=== PATIENT | male | born 1965 | race Caucasian/White ===

== ENCOUNTER 2019-01-09 16:10 | Observation (INO) ==
[2019-01-09 11:37] LABS: Basophils # 0.1 K/mcL (0.0-0.2); Basophils % 0.6 %; Eosinophils # 0.7 K/mcL (0.0-0.6); Eosinophils % 7.6 %; Hematocrit 45.7 % (37.5-50.1); Hemoglobin 15.1 g/dL (12.9-16.9); Immature Granulocytes % 0.4 % (0-4); Lymphocytes # 1.8 K/mcL (0.6-4.6); Lymphocytes % 19.3 %; Mean Corpuscular Volume 87.9 fL (83.0-100.0); Mean Platelet Volume 9.3 fL (9.4-12.4); Monocytes # 0.5 K/mcL (0.0-1.3); Monocytes % 5.9 %; Platelet Count 169 K/mcL (140-400); Red Cell Distribution Width 13.3 % (11.5-14.5); Segmented Neutrophils % 66.2 %; White Blood Count 9.1 K/mcL (4.3-11.1)
[2019-01-09 11:50] LABS: BUN/Creatinine Ratio 20 (6-26); Blood Urea Nitrogen 19 mg/dL (6-20); Calcium 9.4 mg/dL (8.6-10.3); Carbon Dioxide 27 mEq/L (23-29); Chloride 106 mEq/L (98-107); Glucose 137 mg/dL (70-105); Osmolality,Calculated 292 (280-300); Potassium 3.7 mEq/L (3.5-5.1); Sodium 139 mEq/L (136-145); eGFR For African Americans > 60 (> 60); eGFR For Non-African Americans > 60 (> 60)
--- NOTE | 2019-01-09 12:15 | History & Physical Report ---
Date of Encounter: 01/09/19 Time of Encounter: 12:08 24 Hour HP Update - Instructions Instructions: If the History and Physical is less than 30 days old and was completed prior to A.M. admission and or procedure and has NOT been updated on calendar day of procedure please complete this update prior to performing procedure. - Update Patient reports changes in Medical Condition: No Changes in examination, assessment, or condition: No Changes in Medication: No - Attending Attestation Mr. Noyola is a 53-year-old male with PMH of PAF that presents today for Sotalol increase to 160mg BID for recurrent PAF. Please refer to eCW encounter from 12/15/[address] Lg Pfeiffer as H&P. Will need monitored for 5 total increased doses. Anticoagulated on Xarelto, no missed doses in the past 30 days. Baseline ECG 01/09 A-Fib rate 63, QT/QTc 394/401ms. Check TTE. Prior CV testing: [facility] 09/03/16: Nonobstructive coronary artery disease. The left ventricle is grey l and has normal contractility EF 60%.
[2019-01-09] MEDS: Cholecalciferol (D-3) 1,000 UNIT (25MCG) TABLET PO SCH (13:27)
[2019-01-09] MEDS: Aspirin Enteric Coated 81 MG Tablet PO SCH (13:27)
[2019-01-09] MEDS: Multivit/Ca/Min/Fe/FA 1 TAB TABLET PO SCH (13:27)
[2019-01-09] MEDS: Diltiazem CD (24hr) 240 MG CAPSULE PO SCH (13:27)
[2019-01-09] MEDS: Vitamin E 200 UNIT (90MG) CAPSULE PO SCH (13:31)
--- NOTE | 2019-01-09 16:22 | Electrocardiograph Report ---
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
[2019-01-09] MEDS: Gabapentin 300 MG CAPSULE PO SCH ×2 (17:11→21:18)
[2019-01-09] MEDS: *HR* Rivaroxaban 10 MG TABLET PO SCH (17:11)
[2019-01-09] MEDS ORDERED: Perflutren Lipid Microsphere 1.3 ML in 0.9 % Sodium Chloride 8.7 ML IVP ONE (19:20)
[2019-01-09] MEDS ORDERED: NON-FORMULARY MEDICATION 1 EACH EACH (Ezetimibe [Zetia] 10 MG) PO SCH (21:00)
[2019-01-09] MEDS: *HR* Metformin 500 MG TABLET PO SCH (21:18)
[2019-01-10] MEDS: Aspirin Enteric Coated 81 MG Tablet PO SCH (08:37)
[2019-01-10] MEDS: Cholecalciferol (D-3) 1,000 UNIT (25MCG) TABLET PO SCH (08:37)
[2019-01-10] MEDS: Diltiazem CD (24hr) 240 MG CAPSULE PO SCH (08:37)
[2019-01-10] MEDS: Multivit/Ca/Min/Fe/FA 1 TAB TABLET PO SCH (08:37)
[2019-01-10] MEDS: Gabapentin 300 MG CAPSULE PO SCH ×3 (08:37→19:55)
[2019-01-10] MEDS: Vitamin E 200 UNIT (90MG) CAPSULE PO SCH (08:37)
[2019-01-10] MEDS: *HR* Metformin 500 MG TABLET PO SCH ×2 (08:38→19:55)
--- NOTE | 2019-01-10 11:22 | Electrophysiology ProgressNote ---
Date of Encounter: 01/10/19 Time of Encounter: :19 Assessment and Plan (1) PAF (paroxysmal atrial fibrillation) Current Visit: Yes Status: Acute Hx PAF that presented 01/09 for Sotalol increase to 160mg BID for recurrent PAF. Please refer to eCW encounter from 12/15/[address] Lg Pfeiffer as H&P. Will need monitored for 5 total increased doses. Anticoagulated on Xarelto, no missed doses in the past 30 days. Daily ECGs to monitor QTc. Baseline ECG 01/09 A-Fib rate 63, QT/QTc 394/401ms. ECG 01/10 A-Fib rate 54, QT/QTc 443/428ms. NPO after midnight tonight for DCCV tomorrow if remains in A-Fib. TTE Technically sub-optimal due to body habitus. LVEF 55%. Mildly dilated LV. RV was not well visualized. Grossly, it is dilated with mildly reduced function. Severely dilated LA. No evidence of phtn identified. RVSP not well obtained due to poor TR jet. No obvious significant valvular dysfunction. Discussion w patient/family: The assessment and plan as outlined above was discussed with the patient and/or family members who expressed understanding and agreement. All questions were answered. Thank you for involving us in the care of your patient. Please call with any questions. I will discuss all the above with Dr. Lg Pfeiffer and make changes as necessary. Subjective Principal diagnosis: PAF Interval history: No acute complaints this AM. Objective Vital Signs, Last 4 Hours Temp Pulse Resp BP Pulse Ox 01/10/19 08:10 97.8 F 69 18 129/85 98 Vital Signs Temp Pulse Resp BP Pulse Ox 01/10/19 08:10 97.8 F 69 18 129/85 98 01/10/19 04:27 15 97 01/10/19 03:16 97.7 F 60 18 123/76 97 01/10/19 00:35 17 97 01/09/19 23:08 97.9 F 65 18 115/66 96 01/09/19 19:08 98.0 F 60 18 125/72 95 01/09/19 16:26 98.5 F 60 18 101/54 98 01/09/19 11:49 98.7 F 69 18 135/91 96 Intake and Output 01/09/19 01/10/19 01/10/19 23:59 07:59 15:59 Other: # Voids 4 Weight 182.9 kg Blood Glucose* 125 99 Patient Weight 01/10/19 23:59 Weight 182.9 kg General: Conversant, No Apparent Distress HEENT: Atraumatic, Normocephaly, Mucus Membranes Moist Neck: No JVD, Normal carotid pulses Cardiac: Other (irregularly irregular) Lungs: Normal Breath Sounds, No Wheeze, Rales, Rhonchi Neuro: Alert and responsive, No focal deficits noted Abdomen: Soft, Non-Tender Skin: No rashes noted on visualized skin Musculoskeletal: No Chest Wall Tenderness Extremities: No Clubbing, No Cyanosis, No Edema, Normal Pulses Results 01/09/19 10:59 01/09/19 10:59 Lab Results 01/09/19 01/09/19 10:59 10:59 WBC 9.1 Hgb 15.1 Hct 45.7 Plt Count 169 Sodium 139 Potassium 3.7 Chloride 106 Carbon Dioxide 27 BUN 19 Creatinine 0.96 Glucose 137 H Calcium 9.4 Short CBC 01/09/19 Range/Units 10:59 WBC 9.1 (4.3-11.1) K/mcL Hgb 15.1 (12.9-16.9) g/dL Hct 45.7 (37.5-50.1) % Plt Count 169 (140-400) K/mcL Neutrophils # 6.0 (1.6-8.9) K/mcL BMP 01/09/19 Range/Units 10:59 Sodium 139 (136-145) mEq/L Potassium 3.7 (3.5-5.1) mEq/L Chloride 106 (98-107) mEq/L Carbon Dioxide 27 (23-29) mEq/L BUN 19 (6-20) mg/dL Creatinine 0.96 (0.70-1.30) mg/dL Glucose 137 H (70-105) mg/dL Calcium 9.4 (8.6-10.3) mg/dL Impressions Echocardiogram 01/09/19 23:28 Impressions: Technically sub-optimal due to body habitus. LVEF 55%. Mildly dilated left ventricle. Indeterminate diastolic function. Right ventricle was not well visualized. Grossly, it is dilated with mildly reduced function. Severely dilated left atrium. No evidence of pulmonary hypertension identified. RVSP not well obtained due to poor TR jet. No obvious significant valvular dysfunction. Left Ventricular Wall Motion: Rest Echo Findings All wall segments showed normal motion. Findings: Study Quality * Technically sub-optimal due to body habitus. ECG Findings * Atrial fibrillation. Left Ventricle * LVEF 55%. * Mildly dilated left ventricle. * Indeterminate diastolic function. Right Ventricle * Right ventricle was not well visualized. Grossly, it is dilated with mildly reduced function. Left Atrium * Severely dilated left atrium. Right Atrium * Mildly dilated right atrium. Interatrial Septum * Interatrial septum not well evaluated. Aortic Valve * Aortic valve not well visualized. * No aortic regurgitation. * No aortic stenosis. Mitral Valve * Normal mitral valve structure and function. * No mitral regurgitation. * No mitral stenosis. Tricuspid Valve * Normal tricuspid valve structure and function. * Trace tricuspid regurgitation. * No evidence of pulmonary hypertension identified. RVSP not well obtained due to poor TR jet. Pulmonic Valve * Pulmonic valve not well visualized. Aorta * Normally sized aortic root. Pericardium * The pericardium appears normal. IVC * The IVC is not well evaluated. Pulmonary Artery * Pulmonary artery not well visualized. Active Medications Aspirin (Aspirin Ec) 81 mg PO DAILY [facility] Stop: 07/11/19 12:01 Last Admin: 01/10/19 08:37 Dose: 81 mg Documented by: Atorvastatin Calcium (Lipitor) 20 mg PO DAILY TEN Stop: 07/12/19 09:01 Last Admin: 01/10/19 08:37 Dose: 20 mg Documented by: Calcium Carbonate (Tums) 500 mg PO DAILY TEN Stop: 07/11/19 12:01 Last Admin: 01/10/19 08:38 Dose: 500 mg Documented by: Diltiazem HCl (Cardizem Cd) 240 mg PO DAILY TEN Stop: 07/11/19 11:56 Last Admin: 01/10/19 08:37 Dose: 240 mg Documented by: Escitalopram Oxalate (Lexapro) 20 mg PO DAILY TEN Stop: 07/11/19 12:01 Last Admin: 01/10/19 08:37 Dose: 20 mg Documented by: Gabapentin (Neurontin) 300 mg PO TID TEN Stop: 07/11/19 15:01 Last Admin: 01/10/19 08:37 Dose: 300 mg Documented by: Metformin HCl (Glucophage) 500 mg PO BID TEN Stop: 07/11/19 21:01 Last Admin: 01/10/19 08:38 Dose: 500 mg Documented by: Multivitamins/Calcium (Thera M Plus) 1 tab PO DAILY TEN Stop: 07/11/19 11:56 Last Admin: 01/10/19 08:37 Dose: 1 tab Documented by: Rivaroxaban (Xarelto) 20 mg PO PMHY TEN Stop: 07/11/19 16:31 Last Admin: 01/09/19 17:11 Dose: 20 mg Documented by: Sotalol HCl (Betapace) 160 mg PO Q12H TEN Stop: 07/11/19 12:01 Last Admin: 01/10/19 00:11 Dose: 160 mg Documented by: Vitamin D (Vitamin D) 1,000 unit PO DAILY TEN Stop: 07/11/19 12:01 Last Admin: 01/10/19 08:37 Dose: 1,000 unit Documented by: Vitamin E (Vitamin E) 400 unit PO DAILY [facility] Stop: 07/11/19 11:55 Last Admin: 01/10/19 08:37 Dose: 400 unit Documented by: - Imaging and Cardiology Echo: report reviewed - EKG Interpretation EKG results cardiology: other (12 hr tele AVG HR 64, A-Fib) Consult Discharge Plan - Plan Referrals: Lg Pfeiffer MD [Partnered Physician] - Justice Bardales MD [Partnered Physician] - 01/18/19 1:30 pm
[2019-01-10] MEDS: *HR* Rivaroxaban 10 MG TABLET PO SCH (15:05)
--- NOTE | 2019-01-10 21:28 | Electrocardiograph Report ---
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
[2019-01-11] MEDS: Cholecalciferol (D-3) 1,000 UNIT (25MCG) TABLET PO SCH (09:02)
[2019-01-11] MEDS: Vitamin E 200 UNIT (90MG) CAPSULE PO SCH (09:03)
[2019-01-11] MEDS: *HR* Metformin 500 MG TABLET PO SCH (09:03)
[2019-01-11] MEDS: Aspirin Enteric Coated 81 MG Tablet PO SCH (09:03)
[2019-01-11] MEDS: Gabapentin 300 MG CAPSULE PO SCH (09:03)
[2019-01-11] MEDS: Multivit/Ca/Min/Fe/FA 1 TAB TABLET PO SCH (09:03)
[2019-01-11] MEDS: Diltiazem CD (24hr) 240 MG CAPSULE PO SCH (09:03)
[2019-01-11] MEDS ORDERED: *HR* Midazolam HCl 5 MG/5 ML VIAL IVP ONE ×2 (10:02→10:35)
[2019-01-11] MEDS ORDERED: 0.9 % Sodium Chloride 500 ML ONE (10:02)
[2019-01-11] MEDS ORDERED: *HR* FentaNYL (PF) 100 MCG/2 ML VIAL ONE ×2 (10:02→10:27)
--- NOTE | 2019-01-11 10:53 | Pre-Sedation Evaluation ---
Pre-sedation evaluation - Pre-sedation checklist Date of procedure: 01/11/19 Procedure: cardioversion Recent Vitals: Last Vital Signs Temp 98.8 F 01/11/19 06:52 Pulse 60 01/11/19 06:52 Resp 16 01/11/19 06:52 BP 132/86 01/11/19 06:52 Pulse Ox 95 01/11/19 06:52 H&P (including ROS) documented in medical record: Yes Previous reaction to sedatives/anesthetics: Yes; explain in comment Dietary Status: NPO after Midnight Airway Assessment: Patient can open mouth completely, TMJ function normal, Micrognathia (under-bite, receding chin) absent Dentition: full dentition Possible difficult airway: Yes If Yes;: Morbid obesity ASA Classification *see protocol: CLASS III-Severe systemic disease Plan of Care: Pt appropriate candidate for procedure/moderate/conscious sedation, Risks/benefits of procedure/sedation discussed w/ patient/family
[2019-01-11 11:29] VITALS: BP 124/79
--- NOTE | 2019-01-11 13:53 | Discharge Summary ---
Date of Encounter: 01/11/19 Time of Encounter: 13:42 - Discharge Diagnosis (1) PAF (paroxysmal atrial fibrillation) Priority: Primary Status: Acute - Hospital Course Hospital course: Mr. Noyola is a 53 year old male with PMH of PAF that presented 01/09 for Sotalol increase to 160mg BID for recurrent PAF. Please refer to eCW encounter from 12/15/[address] Lg Pfeiffer as H&P. Monitored for 5 total increased doses. QTc has remained stable. Anticoagulated on Xarelto, no missed doses in the past 30 days. Underwent successful DCCV today to [facility]. Continue Cardizem. Will d/c home in stable condition and coordinate outpt f/up in 2-3 weeks. TTE completed--Technically sub-optimal due to body habitus. LVEF 55%. Mildly dilated LV. RV was not well visualized. Grossly, it is dilated with mildly reduced function. Severely dilated LA. No evidence of phtn identified. RVSP not well obtained due to poor TR jet. No obvious significant valvular dysfunction. - Time Spent with Patient Total time spent providing and/or coordinating discharge services: Less than 30 minutes - Discharge Medications Prescriptions: New Sotalol HCl [Betapace] 160 mg PO BID #60 tablet Continued Ezetimibe [Zetia] 10 mg PO HS Atorvastatin Calcium [Lipitor] 20 mg PO DAILY Metformin HCl [Glucophage] 500 mg PO BID Gabapentin [Neurontin] 300 mg PO TID Rivaroxaban [Xarelto] 20 mg PO DAILY Vitamin E Acid Succinate [Vitamin E] 400 unit PO DAILY Escitalopram Oxalate 20 mg PO DAILY Cholecalciferol (Vitamin D3) [Vitamin D3] 1,200 unit PO DAILY Diltiazem CD (24hr) [Cardizem CD] 120 mg PO DAILY Aspirin [Lo-Dose Aspirin EC] 81 mg PO DAILY Multivitamin [Daily Multiple Vitamin] 1 tab PO DAILY Discontinued Sotalol HCl [Betapace] 120 mg PO Q12HR Home Medications: Atorvastatin Calcium [Lipitor] 20 mg PO DAILY 06/26/15 [History] Ezetimibe [Zetia] 10 mg PO HS 06/26/15 [History] Gabapentin [Neurontin] 300 mg PO TID 06/26/15 [History] Metformin HCl [Glucophage] 500 mg PO BID 06/26/15 [History] Rivaroxaban [Xarelto] 20 mg PO DAILY 06/26/15 [History] Vitamin E Acid Succinate [Vitamin E] 400 unit PO DAILY 06/26/15 [History] Cholecalciferol (Vitamin D3) [Vitamin D3] 1,200 unit PO DAILY 09/03/16 [History] Escitalopram Oxalate 20 mg PO DAILY 09/03/16 [History] Aspirin [Lo-Dose Aspirin EC] 81 mg PO DAILY 01/10/19 [History] Diltiazem CD (24hr) [Cardizem CD] 120 mg PO DAILY 01/10/19 [History] Multivitamin [Daily Multiple Vitamin] 1 tab PO DAILY 01/10/19 [History] Sotalol HCl [Betapace] 160 mg PO BID #60 tablet 01/11/19 [Rx] Allergies/Adverse Reactions: Allergy/AdvReac Type Severity Reaction Status Date / Time ampicillin Allergy Hives Verified 09/03/16 08:09 lisinopril Allergy angioedema Verified 09/03/16 08:09 Date of admission: 01/09/19 10:53 Primary care physician: PCP NONE Discharging clinician: Dayron Andrea Anticipated date of discharge: 01/11/19 Physical Examination Vital Signs, Last 4 Hours Temp Pulse Resp BP Pulse Ox 01/11/19 11:28 97.9 F 56 18 124/79 92 Vital Signs Temp Pulse Resp BP Pulse Ox 01/11/19 11:28 97.9 F 56 18 124/79 92 01/11/19 06:52 98.8 F 60 16 132/86 95 01/11/19 04:36 16 97 01/11/19 03:33 97.6 F 62 15 112/76 97 01/10/19 22:55 98.0 F 76 16 118/87 01/10/19 20:12 97.8 F 71 16 129/84 01/10/19 16:00 97.6 F 60 16 113/82 97 Intake and Output 01/10/19 01/11/19 01/11/19 23:59 07:59 15:59 Intake Total 600 / 840 Output Total 300 / 300 Balance 300 / 540 Intake: Oral 600 / 840 Output: Urine 300 / 300 Other: Weight 182.1 kg Blood Glucose* 218 102 Patient Weight 01/11/19 23:59 Weight 182.1 kg General: Conversant, No Apparent Distress HEENT: Atraumatic, Normocephaly, Mucus Membranes Moist Neck: No JVD, Normal carotid pulses Cardiac: Reg Rate and Rhythm, Normal S1 and S2, No Murmur Lungs: Normal Breath Sounds, No Wheeze, Rales, Rhonchi Neuro: Alert and responsive, No focal deficits noted Abdomen: Soft, Non-Tender Skin: No rashes noted on visualized skin Musculoskeletal: No Chest Wall Tenderness Extremities: No Clubbing, No Cyanosis, No Edema, Normal Pulses - Patient Status Disposition: Home, Self-Care Condition: Fair Functional capacity at discharge: independent ambulation Overall status at discharge: patient is back to baseline - Discharge Instructions Follow Up With: Lg Pfeiffer MD [Partnered Physician] - Justice Bardales MD [Partnered Physician] - 01/18/19 1:30 pm - Diet and Activity Activity: increase activity as tolerated Diet: advance to your usual diet, low fat, low cholesterol Cardiac Rehab - Cardiac Rehab Cardiac Rehab: Phase I consult completed. Patient was educated on why Cardiac Rehabilitation is beneficial to his/her health. Participating in a cardiac rehabilitation can improve the following: strengthen your heart, improve ejection fraction, weight reduction, decrease cholesterol levels, lower blood pressure, lower blood sugar, improve stamina, and enhance self-image. If he/she has any questions, they were instructed to call [facility] at [phone].
--- NOTE | 2019-01-11 15:55 | Electrocardiograph Report ---
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
--- NOTE | 2019-01-12 08:55 | Electrocardiograph Report ---
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
== END 2019-01-11 17:31 | disposition home or self-care (01) ==
LOC: 3BNU
PROVIDERS: ADMIT Internal Medicine Clinical Cardiac Electrophysiology; ATTEND Internal Medicine Clinical Cardiac Electrophysiology